=== PATIENT | female | born 1955 | race Caucasian/White ===

== ENCOUNTER 2020-08-21 20:27 | Emergency (ER) | payer MEDICARE, OTHER ==
[~2020-08-21] VITALS: Ht 167.6 cm; Wt 86.6 kg
[2020-08-21] MEDS ORDERED: WATER ONE (20:54)
[2020-08-21] MEDS ORDERED: LIDOCAINE 1% VIAL ONE (20:55)
[2020-08-21 20:56] VITALS: BP_SYST 122; BP_SYST 185; BP_DIAS 90; BP_DIAS 96
[2020-08-21] MEDS: ADACEL VIAL IM ONE (21:05)
[2020-08-21] MEDS ORDERED: ADACEL VIAL IM ONE (21:12)
[2020-08-21] MEDS ORDERED: TRIPLE ANTIBIOTIC OINTMENT TP ONE (21:13)
--- NOTE | 2020-08-21 21:16 | ER.PDOC ---
General Chief Complaint: Extremities Stated Complaint: FINGER INJURY Time seen by MD: 21:09 Source: patient, family Exam Limitations: no limitations History of Present Illness Initial Comments This 65-year-old female sliced her right thumb lateral aspect on a kitchen knife tonight. The wound was clean but would not stop bleeding. The patient is a retired RN and considered Steri-Strips but felt that the bleeding was too brisk to avoid sutures. Patient is recently out of date on tetanus immunizations with the last immunization felt to be more than 5 years.She has multiple health issues and has recently been on steroids but no steroids currently. No recent infections or strep. Past Medical History Medical History: coronary artery disease, COPD, diabetes, high cholesterol, hypertension, other (Peripheral neuropathy, Mnire's disease) Surgical History: hysterectomy Family History Significant Family History: no pertinent family hx Social History Smoking: non-smoker Alcohol Use: none Drug Use: none Constitutional: no symptoms reported Respiratory: no symptoms reported Cardiovascular: no symptoms reported Gastrointestinal: no symptoms reported Genitourinary: no symptoms reported Musculoskeletal: see HPI Skin: see HPI Psychiatric/Neurological: no symptoms reported Hematologic/Lymphatic: no symptoms reported Physical Exam General Appearance: No Apparent Distress, WD/WN Skin: Other (Patient has a 2 cm long laceration over the lateral aspect of the right thumb with no tendon, nerve, or vessel involvement. She has slow capillary bleeding from the wound bed. No muscle injury. Joint stable at MPJ to stress. No other injuries with fairly clean wound margin. Feathered edge will need minimal revision for cosmesis and reduction of infection risk) ED LACERATION WOUND REPAIR # of Wounds/Lacerations Presen: 1 Wound Location & Length (Requi: Right thumb MPJ lateral Wound Length (cm): 2 Wound cleaned: betadine Distal NVT: neuro intact, vasc intact Anesthesia type: local Anesthesia: 1% Lidocaine Volume Anesthetic (ccs): 2 Wound's Depth, Shape: linear Irrigated w/ Saline (ccs): 15 Wound Explored: clean Tendon Intact: Yes Wound Debrided: minimal Wound Repaired With: sutures Suture Size/Type: 5:0, ethilon Suture Style: running Number of Sutures: 4 Layer Closure?: No Sterile Dressing Applied?: Yes Sling Applied?: No Results/Orders Results/Orders Orders - JOSE TATE MD Water For Irrigation,Sterile (Water) (08/21/20 20:54) Lidocaine Hcl (Lidocaine 1% Vial) (08/21/20 20:55) ER DEPART Departure Time of Disposition: 21:15 Disposition: 01 HOME, SELF-CARE Impression: Primary Impression: Laceration of right hand without foreign body Condition: Improved Referrals: PCP,UNKNOWN (PCP) PRIMARY CARE PROVIDER Duration or Time Spent with Pa: 15 minutes Problem Qualifiers Primary Impression: Laceration of right hand without foreign body Encounter type: initial encounter Qualified Codes: S61.411A - Laceration without foreign body of right hand, initial encounter JOSE TATE MD August 21, 2020 21:16
== END 2020-08-21 21:20 | disposition home or self-care (01) ==
LOC: ER 20:27
DX: S61.011A Laceration without foreign body of right thumb without damage to nail, initial encounter (principal); H81.09 Meniere's disease, unspecified ear; E78.00 Pure hypercholesterolemia, unspecified; E11.42 Type 2 diabetes mellitus with diabetic polyneuropathy; I10 Essential (primary) hypertension; I25.10 Atherosclerotic heart disease of native coronary artery without angina pectoris; J44.9 Chronic obstructive pulmonary disease, unspecified; Z90.710 Acquired absence of both cervix and uterus; W26.0XXA Contact with knife, initial encounter; Y93.89 Activity, other specified; Y92.89 Other specified places as the place of occurrence of the external cause; Y99.8 Other external cause status
CPT/HCPCS: 12001; 90471; 90715; 99283; J2001

== ENCOUNTER 2020-11-29 19:58 | Emergency (ER) | payer MEDICARE, OTHER ==
[~2020-11-29] VITALS: Ht 167.6 cm; Wt 88.9 kg
--- NOTE | 2020-11-29 20:55 | NUR ---
Patient presents for C/O fever, sore throat, headache. Patient states, "I woke up this morning and felt a little under the weather and as the day has progressed it has gotten worse. I'm pretty sure I have a fever. My head, throat, ears and sinuses hurt and just generally feel yucky." Patient alert, no signs of distress noted. Patient had Juan Pablo and Juan Pablo vaccine last month and hasn't been around anybody with Covid. No other complaints noted.
[2020-11-29 21:19] VITALS: BP 151/91
--- NOTE | 2020-11-29 21:56 | DIREP ---
PROCEDURE:CHEST 1 VIEW COMPARISON:[facility], CR, XRAY CHEST 2 VWS, 09/26/2018, 06:57 AM. INDICATIONS:Cough FINDINGS: LUNGS/PLEURA:Chronic interstitial changes. No acute airspace disease. No effusions. VASCULATURE:Normal. Unremarkable pulmonary vasculature. CARDIAC:Normal. No cardiac silhouette abnormality or cardiomegaly. MEDIASTINUM:Normal. No visible mass or adenopathy. BONES:Normal. No fracture or visible bony lesion. OTHER:Negative. CONCLUSION:Chronic interstitial changes without acute airspace disease Dictated by: Sam Puckett DO on 11/29/2020 at 09:54 PM
[2020-11-29] MEDS ORDERED: TORADOL ONE (22:11)
[2020-11-29 22:15] VITALS: BP 149/88
[2020-11-29] MEDS: TORADOL IM STA (22:16)
[2020-11-29 22:29] LABS: BASOPHIL # 0.1 10^3/uL (0.0-0.1); BASOPHIL % 0.9 % (0.0-0.2); EOSINOPHIL % 0.3 % (0.0-5.0); LYMPHOCYTES # 0.88 10^3/uL1 (1.0-4.8); MEAN CORP HGB 30.9 pg (26-34); MONOCYTES # 0.7 10^3/uL (0.3-0.8); MONOCYTES % 12.1 % (5.0-12.0); NEUTROPHIL # 4.2 10^3/uL (1.8-7.7); NEUTROPHILS % 71.7 % (41.0-85.0); PLATELET COUNT 267 10^3/uL (150-400); RED CELL DISTRIBUTION WIDTH 13.1 % (11.5-14.5)
--- NOTE | 2020-11-29 22:45 | DIREP ---
PROCEDURE:CT HEAD OR BRAIN W/O CONTRAST COMPARISON:None. INDICATIONS:Headache TECHNIQUE:CT images were created without intravenous contrast. FINDINGS: VENTRICLES:The ventricles are normal in size and configuration. CEREBRUM:Normal cerebral morphology with appropriate crowe white matter differentiation. CEREBELLUM:Negative. BRAINSTEM:Negative. BASAL CISTERNS:Negative. HEMORRHAGE:No MASS LESION:No ACUTE INFARCT:No SKULL:There is benign overgrowth of the inner table of the frontal bone consistent with hyperostosis frontalis interna. SINUSES:Normal. OTHER:None CONCLUSION:No acute intracranial process Dictated by: Sam Puckett DO on 11/29/2020 at 10:39 PM
[2020-11-29 22:56] LABS: ALANINE AMINOTRANSFERASE(ML) 27 U/L (12-78); ALKALINE PHOSPHATASE 88 U/L (50-136); ASPARTATE AMINO TRANSFERASE 20 U/L (0-35); CALCIUM 10.5 mg/dL (8.4-10.5); CARBON DIOXIDE 25.5 mmol/L (20.0-32); GLUCOSE 110 mg/dL (70-110)
--- NOTE | 2020-11-29 23:10 | PCM.EKG ---
[facility] Test Date: 2020-11-29 Test Time: 23:01:19 Pat Name: BRIAN SANCHEZ Department: Patient ID: [facility]-[id number] Room: Gender: F Corrective Therapist: ED : [id number] Requested By: ORALIA CISNEROS Order Number: [id number] Reading MD: Oralia CISNEROS Measurements Intervals [place] Rate: 89 P: 71 CA: 165 QRS: 71 QRSD: 88 T: 61 QT: 360 QTc: 439 Interpretive Statements Sinus rhythm Probable left atrial enlargement No previous ECG available for comparison Electronically Signed On 12-03-2020 7:21:17 CDT by Oralia CISNEROS Please click the below link to view image of tracing.
[2020-11-29] MEDS ORDERED: TYLENOL PO ONE (23:18)
[2020-11-29] MEDS: TYLENOL PO STA (23:20)
--- NOTE | 2020-11-29 23:25 | ER.PDOC ---
General Chief Complaint: Fever Stated Complaint: SOB/NAUSEA/CHEST PAIN Time seen by MD: 22:00 Source: patient Exam Limitations: no limitations History of Present Illness Initial Comments Cough, chest pain with coughing, fever, chills, sore throat, earache and headache for 2 to 3 days. Timing/Duration: gradual Severity: moderate Associated Symptoms: fever/chills, earache, runny nose, sore throat, cough, mild SOB Allergies: Coded Allergies: No Known Allergies (Unverified , 08/21/20) Constitutional: see HPI EENTM: see HPI Respiratory: see HPI Cardiovascular: no symptoms reported Gastrointestinal: no symptoms reported Genitourinary: no symptoms reported All Other Systems: Reviewed and Negative Past Medical History Medical History: no pertinent history Surgical History: hysterectomy Family History Significant Family History: no pertinent family hx Social History Smoking: non-smoker Alcohol Use: none Drug Use: none Physical Exam General Appearance: alert, no distress Eye: eyes nml inspection, lids & conjunct. nml, PERRL, no nystagmus Nose: nose nml Throat: pharynx nml, airway nml Neck: nml inspection, supple Respiratory: no resp.distress, breath sounds nml Abdomen: non-tender, no organomegaly CVS: reg rate & rhythm, heart sounds nml Skin: color nml, no rash, warm/dry Extremities: non-tender, nml ROM, no pedal edema NEURO/PSYCH: oriented x 3, CN's nml as tested, motor nml, sensation nml, mood/affect nml Results/Orders Results/Orders Orders - ORALIA CISNEROS MD Covid19 Antigen [place] (11/29/20 21:18) Strep Screen (11/29/20 21:18) Xr Chest 1v (11/29/20 21:18) Cbc With Auto Diff (11/29/20 21:56) Comprehensive Metabolic Panel (11/29/20 21:56) Creatine Kinase (11/29/20 21:56) Creatine Kinase Mb (11/29/20 21:56) Troponin I (11/29/20 21:56) Probnp B-Type Application Security Specialist (11/29/20 21:56) Ekg-Routine (11/29/20 21:56) Ketorolac Tromethamine (Toradol) (11/29/20 21:56) Ketorolac Tromethamine (Toradol) (11/29/20 22:11) Ct Head Wo Contrast (11/29/20 22:20) Acetaminophen (Tylenol) (11/29/20 23:18) Acetaminophen (Tylenol) (11/29/20 23:18) Vital Signs Date Time Temp Pulse Resp B/P (MAP) Pulse Ox O2 Delivery O2 Flow Rate FiO2 11/29/20 22:15 101.6 88 18 149/88 (108) 98 Room Air 11/29/20 21:19 102.7 84 20 99 11/29/20 21:19 102.7 84 20 11/29/20 21:19 102.7 84 20 151/91 (111) 99 Room Air Administered Medications Medications (Trade) Dose Ordered Sig/Eve Route PRN Reason Start Time Stop Time Status Last Admin Dose Admin Ketorolac Tromethamine (Toradol) 60 mg STAT STAT IM 11/29/20 21:56 11/29/20 21:59 DC 11/29/20 22:16 60 MG Laboratory Tests Test 11/29/20 21:13 11/29/20 22:10 SARS-CoV-2 Antigen (Rapid) NEGATIVE (NEGATIVE) Group A Streptococcus Screen NEGATIVE (NEGATIVE) White Blood Count 5.9 10^3/uL (4.5-11.0) Red Blood Count 4.72 10^6/uL (4.00-5.20) Hemoglobin 14.6 g/dL (12.0-15.0) Hematocrit 44.4 % (36.0-46.0) Mean Corpuscular Volume 94.1 fL (78-100) Mean Corpuscular Hemoglobin 30.9 pg (26-34) Mean Corpuscular Hemoglobin Concent 32.9 g/dL (33-36.5) L Red Cell Distribution Width 13.1 % (11.5-14.5) Platelet Count 267 10^3/uL (150-400) Mean Platelet Volume 10.7 fL (7.8-11.0) Neutrophils (%) (Auto) 71.7 % (41.0-85.0) Lymphocytes (%) (Auto) 15.0 % (24.0-44.0) L Monocytes (%) (Auto) 12.1 % (5.0-12.0) H Neutrophils # (Auto) 4.2 10^3/uL (1.8-7.7) Lymphocytes # (Auto) 0.88 10^3/uL1 (1.0-4.8) L Monocytes # (Auto) 0.7 10^3/uL (0.3-0.8) Absolute Immature Granulocyte (auto 0.01 10^3 u/L (0-2) Absolute Eosinophils (auto) 0.0 10^3/uL (0.0-0.2) Immature Granulocytes % 0.20 % (0.00-0.50) Eosinophils % 0.3 % (0.0-5.0) Basophils % 0.9 % (0.0-0.2) H Basophils # 0.1 10^3/uL (0.0-0.1) Sodium Level 140 mmol/L (132-145) Potassium Level 4.0 mmol/L (3.6-5.2) Chloride Level 103.0 mmol/L (96-109) Carbon Dioxide Level 25.5 mmol/L (20.0-32) Anion Gap 15.5 Blood Urea Nitrogen 11 mg/dL (7-18) Creatinine 0.90 mg/dL (0.59-1.40) Estimated GFR () 75.8 (>/=60) Est GFR (CKD-EPI)(Non-Afr Beninese) 62.6 (>/=60) BUN/Creatinine Ratio 12.0 Glucose Level 110 mg/dL (70-110) Calcium Level 10.5 mg/dL (8.4-10.5) Total Bilirubin 0.4 mg/dL (0.2-1.0) Aspartate Amino Transferase (AST) 20 U/L (0-35) Alanine Aminotransferase (ALT) 27 U/L (12-78) Alkaline Phosphatase 88 U/L (50-136) Total Creatine Kinase 109 U/L (26-192) Creatine Kinase MB 0.7 ng/mL (0.5-3.6) Troponin I < 0.02 ng/mL (0.00-0.05) Pro-B-Type Natriuretic Peptide 278 pg/mL (0-125) H Total Protein 8.4 g/dL (6.4-8.2) H Albumin 4.4 g/dL (3.4-5.0) Globulin 4.0 Albumin/Globulin Ratio 1.100 Progress Progress CXR: Chronic interstitial changes without acute airspace disease CT head: No acute intracranial abnormality. CBC is normal. Chemistries are unremarkable. Cardiac enzymes are normal. EKG does not show any ST elevation. Strep and Covid are all negative. EKG/XRAY/CT/US EKG: NSR, no ST T wave changes EKG Comments: HR 89, normal P axis ER DEPART Departure Time of Disposition: 23:24 Disposition: 01 HOME / SELF CARE / HOMELESS Impression: Primary Impression: Viral upper respiratory tract infection with cough Condition: Stable Referrals: PCP,UNKNOWN (PCP) PRIMARY CARE PROVIDER Additional Instructions: Mucinex DM [id number] as directed Tylenol Follow-up with your PCP in 3 to 5 days Return to ED if worsening symptoms or concerns Duration or Time Spent with Pa: 60 min ORALIA CISNEROS MD Nov 29, 2020 23:25
== END 2020-11-29 23:40 | disposition home or self-care (01) ==
LOC: ER 19:58
DX: J06.9 Acute upper respiratory infection, unspecified (principal); Z20.822 Contact with and (suspected) exposure to COVID-19; Z79.1 Long term (current) use of non-steroidal anti-inflammatories (NSAID); Z90.710 Acquired absence of both cervix and uterus
CPT/HCPCS: 36415; 70450; 71045; 80053; 82550; 82553; 83880; 84484; 85025; 87070; 87426; 87880; 93005; 96372; 99285; J1885